=== PATIENT | female | born 1980 | race Caucasian/White ===

== ENCOUNTER 2021-12-26 10:00 | Observation (INO) | payer OTHER ==
[2021-12-26] MEDS ORDERED: SODIUM CHLORIDE 0.9% 1,000 ML IV STA (10:06)
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
[2021-12-26 10:43] LABS: Basophils # (A) 0.1 k/uL (0-0.2); Basophils % (A) 2 %; Eosinophils # (A) 0.1 k/uL (0-0.7); Eosinophils % (A) 2 %; HCT 48.8 % (34.0-46.0); HGB 15.6 gm/dL (11.4-16.0); Lymphocytes # (A) 4.3 k/uL (1.0-4.8); Lymphocytes % (A) 58 %; MCH 29.2 pg (25.0-35.0); MCHC 31.9 g/dL (31.0-37.0); MCV 91.4 fL (80.0-100.0); Mean Platelet Volume 6.8; Monocytes # (A) 0.2 k/uL (0-1.0); Monocytes % (A) 3 %; Neutrophils # (A) 2.6 k/uL (1.3-7.7); Neutrophils % (A) 34 %; Platelet Count 354 k/uL (150-450); RBC 5.34 m/uL (3.80-5.40); RDW 12.3 % (11.5-15.5); WBC 7.5 k/uL (3.8-10.6)
[2021-12-26 10:54] LABS: ALT 21 U/L (4-34); AST 34 U/L (14-36); African American GFR (CKD) >90 (>60 ml/min/1.73 sqM); Alkaline Phosphatase 98 U/L (38-126); Anion Gap 13 mmol/L; Blood Urea Nitrogen 8 mg/dL (7-17); Calcium 8.2 mg/dL (8.4-10.2); Carbon Dioxide 28 mmol/L (22-30); Chloride 108 mmol/L (98-107); Glucose 133 mg/dL (74-99); Magnesium 1.8 mg/dL (1.6-2.3); Non-African American GFR(CKD) >90 (>60 ml/min/1.73 sqM); Potassium 3.9 mmol/L (3.5-5.1); Sodium 149 mmol/L (137-145); Total Bilirubin 0.6 mg/dL (0.2-1.3)
[2021-12-26 11:10] LABS: Alcohol 412 mg/dL
[2021-12-26] MEDS ORDERED: NALOXONE 0.4 MG/ML 1 ML VIAL IV PRN (11:22)
[2021-12-26] MEDS ORDERED: LORazepam 2 MG/ML INJ IV PRN ×3 (11:24)
[2021-12-26] MEDS ORDERED: SODIUM CHLORIDE 0.9% 1,000 ML IV SCH (11:30)
[2021-12-26] MEDS: MULTIVITAMINS, THERA 1 EACH TAB PO SCH (14:10)
[2021-12-26] MEDS ORDERED: ACETAMINOPHEN TAB 325 MG TAB PO PRN (16:56)
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
[2021-12-26] MEDS: LACTATED RINGERS 1,000 ML IV SCH (17:21)
[2021-12-26] MEDS: THIAMINE 100 MG TAB PO SCH (17:41)
[2021-12-26 20:59] LABS: ALT 20 U/L (4-34); AST 36 U/L (14-36); African American GFR (CKD) >90 (>60 ml/min/1.73 sqM); Albumin/Globulin Ratio 1.1; Alkaline Phosphatase 90 U/L (38-126); Anion Gap 9 mmol/L; Blood Urea Nitrogen 7 mg/dL (7-17); Calcium 8.4 mg/dL (8.4-10.2); Carbon Dioxide 23 mmol/L (22-30); Chloride 105 mmol/L (98-107); Globulin 3.7 g/dL; Glucose 158 mg/dL (74-99); Non-African American GFR(CKD) >90 (>60 ml/min/1.73 sqM); Potassium 4.4 mmol/L (3.5-5.1); Sodium 137 mmol/L (137-145); Total Bilirubin 0.7 mg/dL (0.2-1.3); Total Protein 7.7 g/dL (6.3-8.2)
[2021-12-26 21:04] LABS: Alcohol 119 mg/dL
[2021-12-26] MEDS ORDERED: ZOLPIDEM 10 MG TAB PO PRN (21:13)
[2021-12-27 03:01] VITALS: TEMP 98.1
[2021-12-27] MEDS: LACTATED RINGERS 1,000 ML IV SCH (05:14)
[2021-12-27 05:55] LABS: Basophils # (A) 0.1 k/uL (0-0.2); Basophils % (A) 1 %; Eosinophils # (A) 0.2 k/uL (0-0.7); Eosinophils % (A) 2 %; HCT 44.5 % (34.0-46.0); HGB 13.9 gm/dL (11.4-16.0); Lymphocytes # (A) 3.2 k/uL (1.0-4.8); Lymphocytes % (A) 40 %; MCH 29.1 pg (25.0-35.0); MCHC 31.2 g/dL (31.0-37.0); MCV 93.5 fL (80.0-100.0); Mean Platelet Volume 6.9; Monocytes # (A) 0.3 k/uL (0-1.0); Monocytes % (A) 4 %; Neutrophils # (A) 4.2 k/uL (1.3-7.7); Neutrophils % (A) 52 %; Platelet Count 271 k/uL (150-450); RBC 4.76 m/uL (3.80-5.40); RDW 12.2 % (11.5-15.5); WBC 8.1 k/uL (3.8-10.6)
[2021-12-27 06:02] LABS: INR 1.1 (<1.2)
[2021-12-27 06:15] LABS: ALT 18 U/L (4-34); AST 33 U/L (14-36); African American GFR (CKD) >90 (>60 ml/min/1.73 sqM); Albumin 3.7 g/dL (3.5-5.0); Alkaline Phosphatase 82 U/L (38-126); Anion Gap 7 mmol/L; Blood Urea Nitrogen 6 mg/dL (7-17); Calcium 8.7 mg/dL (8.4-10.2); Carbon Dioxide 28 mmol/L (22-30); Chloride 103 mmol/L (98-107); Globulin 3.6 g/dL; Glucose 133 mg/dL (74-99); Non-African American GFR(CKD) >90 (>60 ml/min/1.73 sqM); Potassium 4.6 mmol/L (3.5-5.1); Sodium 138 mmol/L (137-145); Total Bilirubin 1.7 mg/dL (0.2-1.3); Total Protein 7.3 g/dL (6.3-8.2)
[2021-12-27] MEDS: MULTIVITAMINS, THERA 1 EACH TAB PO SCH (08:40)
[2021-12-27] MEDS: THIAMINE 100 MG TAB PO SCH (08:40)
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
[2021-12-27 10:08] VITALS: BP 153/99; PULSE 88
[2021-12-27 10:30] VITALS: RESP 18
== END 2021-12-27 10:17 | disposition home or self-care (01) ==
LOC: EC 10:00 → 6NMEDSUR 11:24
PROVIDERS: ADMIT Internal Medicine; ATTEND Internal Medicine
DX: F10.129 Alcohol abuse with intoxication, unspecified (principal); E86.0 Dehydration; E87.0 Hyperosmolality and hypernatremia; E87.8 Other disorders of electrolyte and fluid balance, not elsewhere classified; Y90.8 Blood alcohol level of 240 mg/100 ml or more; Z71.41 Alcohol abuse counseling and surveillance of alcoholic; Z88.5 Allergy status to narcotic agent
CPT/HCPCS: 96360; 96361; 99285; 36415; 80053 ×2; 83735; 85025 ×2; 85610; G0378 ×2; G0480; 80320